=== PATIENT | female | born 1980 | race Caucasian/White ===

== ENCOUNTER 2020-07-20 01:09 | Emergency (ER) | payer OTHER ==
[2020-07-20 01:19] VITALS: BP 140/68; PULSE 78; BMI 28.3
[2020-07-20] MEDS ORDERED: LACTATED RINGERS SOLUTION 1000 ML INFUS.BAG IV ONE (01:40)
[2020-07-20] MEDS ORDERED: ACETAMINOPHEN 1000 MG/100 ML VIAL (NON FORMULARY) IVPB ONE (01:40)
[2020-07-20] MEDS ORDERED: ONDANSETRON 4 MG/2 ML VIAL IVPUSH ONE (01:40)
[2020-07-20] MEDS ORDERED: ACETAMINOPHEN INJECTION 100 ML IVPB ONE (01:58)
[2020-07-20 02:09] VITALS: TEMP 97.6
[2020-07-20 02:40] LABS: PH,URINE 7.5 (5.0-8.0); URINE APPEARANCE CLEAR; URINE BILIRUBIN NEGATIVE (NEGATIVE); URINE COLOR YELLOW; URINE GLUCOSE (UA) NEGATIVE (NEGATIVE); URINE KETONE NEGATIVE (NEGATIVE); URINE LEUK ESTERASE NEGATIVE (NEGATIVE); URINE NITRITE NEGATIVE (NEGATIVE); URINE PROTEIN NEGATIVE (NEGATIVE)
[2020-07-20 02:41] LABS: BASO % 0.6 % (0-2.0); HEMATOCRIT 37.2 % (32.4-45.2); HEMOGLOBIN 12.4 GM/dL (10.7-15.3); LYMPH % 26.2 % (8-40); MCHC 33.3 g/dl (32.0-36.0); MEAN CELL VOLUME 90.1 fl (80-96); MEAN PLT VOLUME 8.6 fl (7.5-11.1); MONO % 7.7 % (3.8-10.2); NEUT % 63.5 % (42.8-82.8); PLATELET COUNT 294 K/MM3 (134-434); RBC 4.12 M/mm3 (3.60-5.2); RDW 13.9 % (11.6-15.6); WHITE BLOOD COUNT 8.1 K/mm3 (4.0-10.0)
[2020-07-20 02:42] LABS: HCG,QUALITATIVE URINE Negative
[2020-07-20 03:04] LABS: POTASSIUM 3.8 mmol/L (3.5-5.1)
[2020-07-20 03:07] LABS: ALBUMIN 3.4 g/dl (3.4-5.0); BLOOD UREA NITROGEN 12.3 mg/dL (7-18); CALCIUM 8.7 mg/dL (8.5-10.1)
[2020-07-20 03:10] LABS: CREATININE 0.6 mg/dL (0.55-1.3)
[2020-07-20 03:11] LABS: BILIRUBIN,TOTAL 0.2 mg/dL (0.2-1)
[2020-07-20 03:12] LABS: TOT PROT 6.8 g/dl (6.4-8.2)
[2020-07-20] MEDS ORDERED: SIMETHICONE 80 MG TAB.CHEW (FP) PO ONE (03:36)
== END 2020-07-20 03:50 | disposition home or self-care (01) ==
LOC: JER 01:09
PROC: 3E033NZ Introduction of Analgesics, Hypnotics, Sedatives into Peripheral Vein, Percutaneous Approach (ICD-10-PCS; principal; 2020-07-20)
PROC: 3E033GC Introduction of Other Therapeutic Substance into Peripheral Vein, Percutaneous Approach (ICD-10-PCS; 2020-07-20)
DX: R14.1 Gas pain (principal); M54.6 Pain in thoracic spine
CPT/HCPCS: 36415; 71046-TC-FY; 76705-TC; 80053; 81003; 83690; 84703; 85025; 87086; 93005; 93010; 99285-25; J0131

== ENCOUNTER 2020-07-23 12:04 | Emergency (ER) | payer OTHER | END 2020-07-23 12:42 | disposition home or self-care (01) | LOC: JVIRT 12:04 | DX: U07.1 COVID-19 (principal) | CPT/HCPCS: C9803; Q3014-GT; U0003 ==

== ENCOUNTER 2020-10-24 15:30 | Emergency (ER) | payer OTHER ==
[2020-10-24 15:52] VITALS: BP 123/83; PULSE 88; TEMP 98.5; BMI 27.3
[2020-10-24] MEDS ORDERED: ACETAMINOPHEN 325 MG TABLET (FP) PO ONE (16:01)
[2020-10-24] MEDS ORDERED: ACETAMINOPHEN 325 MG TABLET (FP) ONE (16:16)
[2020-10-24 16:18] LABS: HCG,QUALITATIVE URINE Negative
[2020-10-24 16:30] LABS: BASO % 0.7 % (0-2.0); EOS % 3.2 % (0-4.5); HEMATOCRIT 39.4 % (32.4-45.2); HEMOGLOBIN 12.7 GM/dl (10.7-15.3); LYMPH % 24.8 % (8-40); MCH 29.4 pg (25.7-33.7); MCHC 32.3 g/dl (32.0-36.0); MEAN CELL VOLUME 90.9 fl (80-96); MEAN PLT VOLUME 8.7 fl (7.5-11.1); NEUT % 63.3 % (42.8-82.8); PLATELET COUNT 284 K/MM3 (134-434); RBC 4.33 M/mm3 (3.60-5.2); RDW 13.5 % (11.6-15.6); WHITE BLOOD COUNT 8.6 K/mm3 (4.0-10.8)
[2020-10-24 16:38] LABS: ALBUMIN 3.8 g/dl (3.4-5.0); BILIRUBIN,TOTAL 0.5 mg/dl (0.2-1); CALCIUM 9.3 mg/dl (8.5-10); CREATININE 0.6 mg/dl (0.55-1.3); POTASSIUM 3.9 mmol/L (3.5-5.1); TOT PROT 6.8 g/dl (6.4-8.2)
== END 2020-10-24 19:55 | disposition home or self-care (01) ==
LOC: FER 15:30
DX: R10.2 Pelvic and perineal pain (principal)
CPT/HCPCS: 36415; 74177-TC; 80053; 81003; 84703; 85025; 87086; 99285-25

== ENCOUNTER 2021-09-16 21:25 | Emergency (ER) | payer OTHER ==
[2021-09-16 21:54] VITALS: BP 143/81; PULSE 60; TEMP 98.4; BMI 25.0
[2021-09-16] MEDS ORDERED: SODIUM CHLORIDE 0.9% 500 ML INFUS.BAG IV ONE (21:55)
[2021-09-16] MEDS ORDERED: ACETAMINOPHEN 1000 MG/100 ML BAG IVPB ONE (21:55)
[2021-09-16 22:35] LABS: ACTIVATED PTT 29.5 SECONDS (25.2-36.5)
[2021-09-16 22:37] LABS: ALBUMIN 3.9 g/dl (3.4-5.0); BILIRUBIN,TOTAL 0.6 mg/dl (0.2-1); CALCIUM 9.4 mg/dl (8.5-10); CREATININE 0.5 mg/dl (0.55-1.3); MAGNESIUM 1.9 mg/dL (1.8-2.4); TOT PROT 7.1 g/dl (6.4-8.2)
[2021-09-16 22:39] LABS: INR 1.02 (0.83-1.09); PROTHROMBIN TIME (PATIENT) 11.3 SEC (9.7-13.0)
[2021-09-16] MEDS ORDERED: ACETAMINOPHEN INJECTION 100 ML IVPB ONE (22:52)
[2021-09-16 23:36] LABS: BASO % 0.9 % (0-2.0); EOS % 3.6 % (0-4.5); HEMATOCRIT 36.7 % (32.4-45.2); HEMOGLOBIN 12.2 GM/dL (10.7-15.3); LYMPH % 29.7 % (8-40); MCH 29.5 pg (25.7-33.7); MCHC 33.2 g/dl (32.0-36.0); MEAN CELL VOLUME 89.1 fl (80-96); MEAN PLT VOLUME 8.8 fl (7.5-11.1); MONO % 7.2 % (3.8-10.2); NEUT % 58.6 % (42.8-82.8); PLATELET COUNT 336 10^3/uL (134-434); RBC 4.12 M/mm3 (3.60-5.2); RDW 14.6 % (11.6-15.6); WHITE BLOOD COUNT 8.4 K/mm3 (4.0-10.0)
== END 2021-09-17 00:56 | disposition home or self-care (01) ==
LOC: FER 21:25
PROC: 3E0333Z Introduction of Anti-inflammatory into Peripheral Vein, Percutaneous Approach (ICD-10-PCS; principal; 2021-09-16)
DX: R10.9 Unspecified abdominal pain (principal)
CPT/HCPCS: 36415; 74177-TC; 76830-TC; 80053; 81003; 81025; 83735; 85025; 85610; 85730; 86850; 86900; 86901; 87086; 99285-25; J0131; Q9967

== ENCOUNTER 2022-05-08 08:05 | Emergency (ER) | payer OTHER ==
[2022-05-08] MEDS ORDERED: METHOCARBAMOL 500 MG TABLET PO ONE (08:07)
[2022-05-08] MEDS ORDERED: ACETAMINOPHEN 325 MG TABLET (FP) PO ONE (08:07)
[2022-05-08] MEDS ORDERED: KETOROLAC TROMETHAMINE 30 MG/1 ML VIAL IM ONE (08:07)
[2022-05-08] MEDS ORDERED: LIDOCAINE 5% TOPICAL PATCH TP ONE (08:08)
[2022-05-08 08:30] VITALS: BP 129/90; PULSE 81; RESP 18; TEMP 98.1; BMI 29.2
[2022-05-08] MEDS ORDERED: METHOCARBAMOL 500 MG TABLET ONE (08:34)
[2022-05-08] MEDS ORDERED: KETOROLAC TROMETHAMINE 30 MG/1 ML VIAL ONE (08:34)
[2022-05-08] MEDS ORDERED: LIDOCAINE 5% TOPICAL PATCH ONE (08:35)
[2022-05-08] MEDS ORDERED: ACETAMINOPHEN 325 MG TABLET (FP) ONE (08:35)
[2022-05-08] MEDS ORDERED: ONDANSETRON 4 MG TABLET PO ONE (09:02)
[2022-05-08] MEDS ORDERED: ONDANSETRON *ODT* 4 MG TABLET ONE (09:03)
[2022-05-08] MEDS ORDERED: LIDOCAINE PATCH REMOVAL MC SCH (22:00)
== END 2022-05-08 09:34 | disposition home or self-care (01) ==
LOC: FER 08:05
PROC: 3E023GC Introduction of Other Therapeutic Substance into Muscle, Percutaneous Approach (ICD-10-PCS; principal; 2022-05-08)
DX: M25.511 Pain in right shoulder (principal)
CPT/HCPCS: 73030-TC-RT-FY; 99284-25

== ENCOUNTER 2022-08-04 09:13 | Emergency (ER) | payer OTHER ==
[2022-08-04 09:18] VITALS: BP 118/78; PULSE 93; RESP 18; TEMP 97.5; BMI 28.7
== END 2022-08-04 10:25 | disposition home or self-care (01) ==
LOC: FER 09:13
DX: J01.90 Acute sinusitis, unspecified (principal); H60.501 Unspecified acute noninfective otitis externa, right ear
CPT/HCPCS: 0241U-QW; 99283-25

== ENCOUNTER 2023-07-01 19:25 | Emergency (ER) | payer OTHER ==
[2023-07-01 19:31] VITALS: BP 106/72; PULSE 100; RESP 16; TEMP 98.9; BMI 29.7
[2023-07-01] MEDS ORDERED: guaiFENesin/CODEINE 10 ML UNIT-DOSE CUPS PO ONE (20:29)
[2023-07-01] MEDS ORDERED: IBUPROFEN 600 MG TABLET (FP) PO ONE ×2 (20:29→20:32)
[2023-07-01] MEDS ORDERED: guaiFENesin/CODEINE 10 ML UNIT-DOSE CUPS ONE (20:32)
== END 2023-07-01 20:38 | disposition home or self-care (01) ==
LOC: FER 19:25
DX: R09.81 Nasal congestion (principal); J02.9 Acute pharyngitis, unspecified; R50.9 Fever, unspecified; R05.9 Cough, unspecified; M79.10 Myalgia, unspecified site; J40 Bronchitis, not specified as acute or chronic; U07.1 COVID-19
CPT/HCPCS: 0241U-QW; 99283-25

== ENCOUNTER 2023-07-09 19:39 | Emergency (ER) | payer OTHER ==
[2023-07-09 19:49] VITALS: BP 134/96; PULSE 76; RESP 16; TEMP 98.1; BMI 29.5
[2023-07-09] MEDS ORDERED: METOCLOPRAMIDE HCL INJECTION 10 MG/2 ML VIAL IM ONE (20:06)
[2023-07-09] MEDS ORDERED: ACETAMINOPHEN 325 MG TABLET (FP) PO ONE (20:06)
[2023-07-09] MEDS ORDERED: DEXAMETHASONE 4 MG TABLET (FP) PO ONE (20:07)
[2023-07-09] MEDS ORDERED: METOCLOPRAMIDE HCL INJECTION 10 MG/2 ML VIAL ONE (20:12)
[2023-07-09] MEDS ORDERED: ACETAMINOPHEN 325 MG TABLET (FP) ONE (20:12)
[2023-07-09] MEDS ORDERED: DEXAMETHASONE 4 MG TABLET (FP) ONE (20:12)
== END 2023-07-09 21:41 | disposition home or self-care (01) ==
LOC: FER 19:39
PROC: 3E023GC Introduction of Other Therapeutic Substance into Muscle, Percutaneous Approach (ICD-10-PCS; principal; 2023-07-09)
DX: R51.9 Headache, unspecified (principal)
CPT/HCPCS: 99284-25